=== PATIENT | female | born 1935 | race Caucasian/White ===

== ENCOUNTER 2017-12-01 14:00 | Observation (INO) | payer MEDICARE ==
[2017-12-01 14:33] LABS: BASO # 0.1 K/uL (0.0-0.2); BASO % 0.7 % (0.0-2.0); EOS # 0.3 K/uL (0.0-0.7); EOS % 3.7 % (0.0-4.0); HEMOGLOBIN 13.2 g/dL (11.0-16.0); LYMPH # 1.3 K/uL (1.0-4.3); LYMPH % 18.9 % (20.0-40.0); MEAN CELL VOLUME 87.8 fL (81.0-99.0); MEAN CORPUSCULAR HEMOGLOBIN 29.1 pg (27.0-31.0); MEAN CORPUSCULAR HGB CONC 33.1 g/dL (33.0-37.0); MEAN PLATELET VOLUME 9.6 fL (7.2-11.7); MONO # 0.7 K/uL (0.0-0.8); MONO % 9.8 % (0.0-10.0); NEUT # 4.6 K/uL (1.8-7.0); NEUT % 66.9 % (50.0-75.0); RBC 4.53 Mil/uL (3.80-5.20); WHITE BLOOD COUNT 6.9 K/uL (4.8-10.8)
[2017-12-01 14:40] LABS: SQUAMOUS EPITHIAL 4 /hpf (0-5); URINE BACTERIA RARE (<OCC); URINE BILIRUBIN NEGATIVE (NEGATIVE); URINE BLOOD NEGATIVE (NEGATIVE); URINE CLARITY Clear (Clear); URINE COLOR Yellow (YELLOW); URINE GLUCOSE (UA) NORMAL (Normal); URINE LEUKOCYTE ESTERASE NEG Leu/uL (Negative); URINE PROTEIN NEGATIVE (NEGATIVE); URINE UROBILINOGEN NORMAL mg/dL (0.2-1.0)
--- NOTE | 2017-12-01 14:54 | RAD ---
PROCEDURE: CHEST RADIOGRAPH, 1 VIEW HISTORY: SOB COMPARISON: Chest radiograph dated 11/30/2011 FINDINGS: LUNGS: Prominence of the pulmonary vasculature may be secondary to AP technique and/or pulmonary vascular congestion. No focal consolidation. PLEURA: No pneumothorax or pleural fluid seen. CARDIOVASCULAR: Cardiomediastinal silhouette unchanged. OSSEOUS STRUCTURES: Unchanged. VISUALIZED UPPER ABDOMEN: Normal. OTHER FINDINGS: None. IMPRESSION: Prominence of pulmonary vasculature may be secondary to AP technique and/or pulmonary vascular congestion. No focal consolidation or pleural effusion.
[2017-12-01 14:55] LABS: ALB/GLOB RATIO 1.2 (1.0-2.1); ALBUMIN 4.5 g/dL (3.5-5.0); ALT/SGPT 30 U/L (9-52); AST/SGOT 20 U/L (14-36); BLOOD UREA NITROGEN 11 mg/dL (7-17); CALCIUM 9.2 mg/dl (8.6-10.4); GFR AFRICAN-AMERICAN > 60; GFR NON-AFRICAN AMERICAN > 60
[2017-12-01] MEDS ORDERED: Aspirin 325 mg EC Tablets PO STA (14:55)
--- NOTE | 2017-12-01 14:55 | C.PDOC ---
History Of Present Illness 82 y/o female referred to ED by Dr. Amezcua for patient complaining of left leg numbness for 2 weeks with associated decreased sensation to left lateral leg. Patient is able to walk normally and reports occasional sharp pain to left medial 2 fingers and neck pain. Patient denies head injury, neck injury, fever, chills, chest pain, sob or any other complaints at this time. Time Seen by Provider: 12/01/17 14:08 Chief Complaint (Nursing): Lower Extremity Problem/Injury History Per: Patient History/Exam Limitations: no limitations Onset/Duration Of Symptoms: Days Current Symptoms Are (Timing): Still Present Past Medical History Reviewed: Historical Data, Nursing Documentation, Vital Signs Vital Signs: Last Vital Signs Temp 98.1 F 12/01/17 19:10 Pulse 85 12/01/17 19:54 Resp 20 12/01/17 19:54 BP 156/78 H 12/01/17 19:54 Pulse Ox 98 12/01/17 19:17 - Medical History PMH: No Chronic Diseases Surgical History: No Surg Hx Family History: States: No Known Family Hx - Social History Hx Alcohol Use: No Hx Substance Use: No - Immunization History Hx Tetanus Toxoid Vaccination: No Hx Influenza Vaccination: No Hx Pneumococcal Vaccination: No Review Of Systems Constitutional: Negative for: Fever, Chills Musculoskeletal: Positive for: Neck Pain, Hand Pain, Leg Pain Skin: Negative for: Rash Neurological: Positive for: Numbness. Negative for: Weakness Physical Exam - Physical Exam Appears: Non-toxic, No Acute Distress, Other (obese) Skin: Warm, Dry, No Rash Head: Atraumatic, Normacephalic Oral Mucosa: Moist Neck: Other (positive JVD. ) Cardiovascular: Murmur (Holosystolic) Respiratory: Rales (mild), No Rhonchi, No Wheezing Gastrointestinal/Abdominal: Soft, No Tenderness, No Guarding, No Rebound, Other (obese abdomen) Extremity: Pedal Edema (1/4 ), No Deformity, Other (decreased sensation to left lateral leg. no hair on both legs. lower extremities Warm to touch ) Extremity: Bilateral: Normal ROM Pulses: Left Dorsalis Pedis: Absent, Right Dorsalis Pedis: Absent Neurological/Psych: Oriented x3, Normal Speech, Normal Cognition, Normal Cranial Nerves, No Normal Sensation ED Course And Treatment - Laboratory Results Result Diagrams: 12/01/17 14:25 12/01/17 14:25 Lab Interpretation: Normal (inr 1.1, trop and bnp neg.) ECG: Interpreted By Me ECG Rhythm: Sinus Rhythm ECG Interpretation: Normal Rate From EC (BPM) O2 Sat by Pulse Oximetry: 100 (RA) Pulse Ox Interpretation: Normal - Radiology CXR: Interpreted by Me CXR Interpretation: Yes: No Acute Disease, Other (+ mild CHF, cardiomegaly) Progress Note: asa, lasix IV Reevaluation Time: 16:06 Reassessment Condition: Improved - Physician Consult Information Outcome Of Conversation: 1315, 1500, 1600 d/w Dr. Amezcua, will consult. 1600: d/ w Dr. Bell- Medicine Dog Control Officer- ok to admit. Medical Decision Making Medical Decision Making: though a vasculopath, pt with doppler detectable pulses b/l feet. LOW susp of arterial insufficiency emergency L neck, L hand, L lateral leg neurological symptoms suspicious for brain/c- spine issues, normal head CT today consider MRI C-spine as inpt. Disposition Doctor Will See Patient In The: Hospital Counseled Patient/Family Regarding: Studies Performed, Diagnosis - Disposition Disposition: HOSPITALIZED Disposition Time: 16:11 Condition: GOOD - Clinical Impression Clinical Impression: Paresthesia of left lower extremity, CHF (congestive heart failure) - Scribe Statement The provider has reviewed the documentation as recorded by the Markoibavni Navas All medical record entries made by the Scribe were at my direction and personally dictated by me. I have reviewed the chart and agree that the record accurately reflects my personal performance of the history, physical exam, medical decision making, and the department course for this patient. I have also personally directed, reviewed, and agree with the discharge instructions and disposition.
[2017-12-01 15:04] LABS: B-TYPE NATRIURETIC PEPTIDE 769 pg/mL (0-900)
[2017-12-01 15:11] LABS: INR 1.1; PROTHROMBIN TIME 12.7 SECONDS (9.7-12.2)
[2017-12-01] MEDS ORDERED: Aspirin 325 mg EC Tablets PO ONE (15:47)
--- NOTE | 2017-12-01 16:41 | CT ---
PROCEDURE: CT HEAD WITHOUT CONTRAST. HISTORY: L body parasthesias, shooting pain L hand ? SDH` COMPARISON: None available. TECHNIQUE: Axial computed tomography images were obtained through the head/brain without intravenous contrast. Radiation dose: Total exam DLP = 934.80 mGy-cm. This CT exam was performed using one or more of the following dose reduction techniques: Automated exposure control, adjustment of the mA and/or kV according to patient size, and/or use of iterative reconstruction technique. FINDINGS: HEMORRHAGE: No intracranial hemorrhage. BRAIN: Good corticomedullary differentiation is seen. Diffuse expansion of the ventriculosulcal and cisternal spaces is appreciated with white matter lucency compatible with diffuse cerebral atrophy and chronic microangiopathy. No suspicious extra-axial fluid collection is identified and the midline brain anatomy appears grossly nonfocal as imaged. There is no mass effect throughout. A chronic lacune is seen at the right basal ganglia versus dilated perivascular space. VENTRICLES: Unremarkable. No hydrocephalus. CALVARIUM: Unremarkable. PARANASAL SINUSES: Chronic sinusitis opacifies the left sphenoid sinus completely with a few punctate calcifications internally. MASTOID AIR CELLS: Unremarkable as visualized. No inflammatory changes. OTHER FINDINGS: None. IMPRESSION: No definite acute intracranial findings by standard CT criteria. Age related neuro degenerative changes are identified as discussed above as well as a chronic lacune right basal ganglia. Follow up CT or MRI are available as clinically warranted. Chronic left sphenoid sinus disease.
--- NOTE | 2017-12-01 18:25 | CP.PCM.HP ---
History of Present Illness - History of Present Illness History of Present Illness: pt is seen and examined, H&P is dictated for dr. pablo #[phone] Past Patient History - Past Social History Smoking Status: Never Smoked - PSYCHIATRIC Hx Substance Use: No Meds Home Medications: Home Medication List Medication Instructions Recorded Confirmed Type Aspirin [Aspirin Chewable] 81 mg PO DAILY chew 12/03/17 Rx Clopidogrel [Plavix] 75 mg PO DAILY #30 tab 12/03/17 Rx Cyanocobalamin (Vitamin B-12) 500 mcg PO DAILY #30 tablet 12/03/17 Rx [B-12] Levothyroxine [Synthroid] 25 mcg PO DAILY@0630 #30 tab 12/03/17 Rx Rosuvastatin Calcium [Crestor] 10 mg PO HS #30 tab 12/03/17 Rx Allergies/Adverse Reactions: Allergies Allergy/AdvReac Type Severity Reaction Status Date / Time Penicillins Allergy Verified 12/01/17 14:06 Results - Vital Signs Recent Vital Signs: Last Vital Signs Temp 97.9 F 12/01/17 14:09 Pulse 79 12/01/17 17:52 Resp 16 12/01/17 17:52 BP 148/77 12/01/17 17:52 Pulse Ox 99 12/01/17 17:52 - Labs Result Diagrams: 12/02/17 07:14 12/02/17 07:14 Labs: Laboratory Results - last 24 hr 12/01/17 12/01/17 12/01/17 14:04 14:25 14:25 WBC 6.9 RBC 4.53 Hgb 13.2 Hct 39.8 MCV 87.8 MCH 29.1 MCHC 33.1 RDW 14.0 Plt Count 156 MPV 9.6 Neut % (Auto) 66.9 Lymph % (Auto) 18.9 L [place] % (Auto) 9.8 Eos % (Auto) 3.7 Baso % (Auto) 0.7 Neut # (Auto) 4.6 Lymph # (Auto) 1.3 [place] # (Auto) 0.7 Eos # (Auto) 0.3 Baso # (Auto) 0.1 PT 12.7 H INR 1.1 APTT 25 D-Dimer, Quantitative Cancelled Sodium Potassium Chloride Carbon Dioxide Anion Gap BUN Creatinine Est GFR ( Amer) Est GFR (Non-Af Amer) POC Glucose (mg/dL) 177 H Random Glucose Calcium Total Bilirubin AST ALT Alkaline Phosphatase Troponin I NT-Pro-B Natriuret Pep Total Protein Albumin Globulin Albumin/Globulin Ratio Urine Color Urine Clarity Urine pH Ur Specific [place] Urine Protein Urine Glucose (UA) Urine Ketones Urine Blood Urine Nitrate Urine Bilirubin Urine Urobilinogen Ur Leukocyte Esterase Urine WBC (Auto) Urine RBC (Auto) Ur Squamous Epith Cells Urine Bacteria 12/01/17 12/01/17 12/01/17 14:25 14:25 15:29 WBC RBC Hgb Hct MCV MCH MCHC RDW Plt Count MPV Neut % (Auto) Lymph % (Auto) [place] % (Auto) Eos % (Auto) Baso % (Auto) Neut # (Auto) Lymph # (Auto) [place] # (Auto) Eos # (Auto) Baso # (Auto) PT INR APTT D-Dimer, Quantitative 500 H Sodium 142 Potassium 3.9 Chloride 99 Carbon Dioxide 29 Anion Gap 18 BUN 11 Creatinine 0.7 Est GFR ( Amer) > 60 Est GFR (Non-Af Amer) > 60 POC Glucose (mg/dL) Random Glucose 184 H Calcium 9.2 Total Bilirubin 0.6 AST 20 ALT 30 Alkaline Phosphatase 66 Troponin I < 0.0120 NT-Pro-B Natriuret Pep 769 Total Protein 8.3 Albumin 4.5 Globulin 3.8 Albumin/Globulin Ratio 1.2 Urine Color Yellow Urine Clarity Clear Urine pH 5.0 Ur Specific [place] 1.014 Urine Protein Negative Urine Glucose (UA) Normal Urine Ketones Negative Urine Blood Negative Urine Nitrate Negative Urine Bilirubin Negative Urine Urobilinogen Normal Ur Leukocyte Esterase Neg Urine WBC (Auto) < 1 Urine RBC (Auto) 1 Ur Squamous Epith Cells 4 Urine Bacteria Rare
--- NOTE | 2017-12-02 06:28 | NM ---
EXAM: NM Lung Perfusion and Ventilation Scan CLINICAL HISTORY: 82 years old, female; Signs and symptoms; Other: Left leg numbness for 2 weeks; Patient HX: Emergency department documentation sent for better clinical correlation. Chest x-ray done 12/01/17 sent for comparison. ; Additional info: R/O pulmonary embolisim TECHNIQUE: Nuclear Medicine ventilation and perfusion images of the lungs were obtained in multiple projections following inhalation of and injection of [id number] MAA. COMPARISON: Chest radiograph dated 12/01/2017 FINDINGS: Ventilation: Unremarkable. No ventilation defects. Perfusion: Unremarkable. No perfusion defects. IMPRESSION: No findings to suggest pulmonary embolism.
--- NOTE | 2017-12-02 07:10 | CP.PCM.CON ---
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 - DIABETIC OLD FAILURE WITH ASA Rx PLAVIX CONT ARB AND STATIN DM, BP AND WEIGHT CONTROL NEEDS PSG R/O SRBD ON OP Past Patient History - Past Social History Smoking Status: Never Smoked - PSYCHIATRIC Hx Substance Use: No Meds Allergies/Adverse Reactions: Allergies Allergy/AdvReac Type Severity Reaction Status Date / Time Penicillins Allergy Verified 12/01/17 14:06 - Medications Medications: Current Medications Aspirin (Aspirin Chewable) 81 mg PO DAILY [facility] Clopidogrel Bisulfate (Plavix) 75 mg PO DAILY [facility] Glimepiride (Amaryl) 4 mg PO DAILY [facility] Heparin Sodium (Porcine) (Heparin) 5,000 units SC Q8 [facility] Last Admin: 12/02/17 06:26 Dose: 5,000 units Losartan Potassium (Cozaar) 50 mg PO DAILY [facility] Rosuvastatin Calcium (Crestor) 10 mg PO HS [facility] Last Admin: 12/01/17 22:01 Dose: 10 mg Results - Vital Signs Recent Vital Signs: Last Vital Signs Temp 97.1 F L 12/01/17 23:10 Pulse 82 12/02/17 06:23 Resp 20 12/01/17 23:10 BP 147/81 12/02/17 06:23 Pulse Ox 100 12/02/17 00:36 - Labs Result Diagrams: 12/01/17 14:25 12/01/17 14:25 Labs: Laboratory Results - last 24 hr 12/01/17 12/01/17 12/01/17 14:04 14:25 14:25 WBC 6.9 RBC 4.53 Hgb 13.2 Hct 39.8 MCV 87.8 MCH 29.1 MCHC 33.1 RDW 14.0 Plt Count 156 MPV 9.6 Neut % (Auto) 66.9 Lymph % (Auto) 18.9 L [place] % (Auto) 9.8 Eos % (Auto) 3.7 Baso % (Auto) 0.7 Neut # (Auto) 4.6 Lymph # (Auto) 1.3 [place] # (Auto) 0.7 Eos # (Auto) 0.3 Baso # (Auto) 0.1 PT 12.7 H INR 1.1 APTT 25 D-Dimer, Quantitative Cancelled Sodium Potassium Chloride Carbon Dioxide Anion Gap BUN Creatinine Est GFR ( Amer) Est GFR (Non-Af Amer) POC Glucose (mg/dL) 177 H Random Glucose Calcium Total Bilirubin AST ALT Alkaline Phosphatase Troponin I NT-Pro-B Natriuret Pep Total Protein Albumin Globulin Albumin/Globulin Ratio Urine Color Urine Clarity Urine pH Ur Specific [place] Urine Protein Urine Glucose (UA) Urine Ketones Urine Blood Urine Nitrate Urine Bilirubin Urine Urobilinogen Ur Leukocyte Esterase Urine WBC (Auto) Urine RBC (Auto) Ur Squamous Epith Cells Urine Bacteria 12/01/17 12/01/17 12/01/17 14:25 14:25 15:29 WBC RBC Hgb Hct MCV MCH MCHC RDW Plt Count MPV Neut % (Auto) Lymph % (Auto) [place] % (Auto) Eos % (Auto) Baso % (Auto) Neut # (Auto) Lymph # (Auto) [place] # (Auto) Eos # (Auto) Baso # (Auto) PT INR APTT D-Dimer, Quantitative 500 H Sodium 142 Potassium 3.9 Chloride 99 Carbon Dioxide 29 Anion Gap 18 BUN 11 Creatinine 0.7 Est GFR ( Amer) > 60 Est GFR (Non-Af Amer) > 60 POC Glucose (mg/dL) Random Glucose 184 H Calcium 9.2 Total Bilirubin 0.6 AST 20 ALT 30 Alkaline Phosphatase 66 Troponin I < 0.0120 NT-Pro-B Natriuret Pep 769 Total Protein 8.3 Albumin 4.5 Globulin 3.8 Albumin/Globulin Ratio 1.2 Urine Color Yellow Urine Clarity Clear Urine pH 5.0 Ur Specific [place] 1.014 Urine Protein Negative Urine Glucose (UA) Normal Urine Ketones Negative Urine Blood Negative Urine Nitrate Negative Urine Bilirubin Negative Urine Urobilinogen Normal Ur Leukocyte Esterase Neg Urine WBC (Auto) < 1 Urine RBC (Auto) 1 Ur Squamous Epith Cells 4 Urine Bacteria Rare 12/01/17 12/02/17 19:48 03:28 WBC RBC Hgb Hct MCV MCH MCHC RDW Plt Count MPV Neut % (Auto) Lymph % (Auto) [place] % (Auto) Eos % (Auto) Baso % (Auto) Neut # (Auto) Lymph # (Auto) [place] # (Auto) Eos # (Auto) Baso # (Auto) PT INR APTT 30 D D-Dimer, Quantitative Sodium Potassium Chloride Carbon Dioxide Anion Gap BUN Creatinine Est GFR ( Amer) Est GFR (Non-Af Amer) POC Glucose (mg/dL) Random Glucose Calcium Total Bilirubin AST ALT Alkaline Phosphatase Troponin I < 0.0120 NT-Pro-B Natriuret Pep Total Protein Albumin Globulin Albumin/Globulin Ratio Urine Color Urine Clarity Urine pH Ur Specific [place] Urine Protein Urine Glucose (UA) Urine Ketones Urine Blood Urine Nitrate Urine Bilirubin Urine Urobilinogen Ur Leukocyte Esterase Urine WBC (Auto) Urine RBC (Auto) Ur Squamous Epith Cells Urine Bacteria
[2017-12-02 07:46] LABS: BASO % 0.6 % (0.0-2.0); EOS # 0.3 K/uL (0.0-0.7); EOS % 5.2 % (0.0-4.0); HEMOGLOBIN 12.3 g/dL (11.0-16.0); LYMPH # 1.3 K/uL (1.0-4.3); LYMPH % 21.5 % (20.0-40.0); MEAN CELL VOLUME 87.8 fL (81.0-99.0); MEAN CORPUSCULAR HEMOGLOBIN 29.6 pg (27.0-31.0); MEAN CORPUSCULAR HGB CONC 33.7 g/dL (33.0-37.0); MEAN PLATELET VOLUME 9.6 fL (7.2-11.7); MONO # 0.7 K/uL (0.0-0.8); MONO % 12.3 % (0.0-10.0); NEUT # 3.7 K/uL (1.8-7.0); NEUT % 60.4 % (50.0-75.0); NRBC % 0.1 % (0.0-2.0); RBC 4.15 Mil/uL (3.80-5.20); RED CELL DISTRIBUTION WIDTH 14.2 % (11.5-14.5)
[2017-12-02 07:47] LABS: ALB/GLOB RATIO 1.1 (1.0-2.1); ALT/SGPT 26 U/L (9-52); AST/SGOT 22 U/L (14-36); BLOOD UREA NITROGEN 13 mg/dL (7-17); CALCIUM 9.1 mg/dl (8.6-10.4); GFR AFRICAN-AMERICAN > 60; GFR NON-AFRICAN AMERICAN > 60; HDL CHOLESTEROL 35 mg/dL (30-70)
[2017-12-02 07:57] LABS: LDL CHOLESTEROL 135 mg/dL (0-129)
[2017-12-02 08:05] LABS: FREE T4 0.76 ng/dL (0.78-2.19)
--- NOTE | 2017-12-02 08:31 | HP ---
LOCATION: The patient is located in room 651, bed B. The patient is seen and examined by Dr. Luli Howard. CHIEF COMPLAINT: Left leg pain and numbness. HISTORY: Mrs. Quigley is 82 years old obese elderly female with a past medical history significant for longstanding hypertension, diabetes, hyperlipidemia, coronary artery disease, status post multiple stents who was followed by Dr. Leonid Amezcua. As per the patient, she went to Dr. Amezcua, systems development manager's office this afternoon, and the patient was complaining of left leg numbness and pain and feeling cold on the leg for 2 weeks and questionable swelling of the legs. The patient denies any head injury, denies any neck injury. Denies any fevers, chills. Denies any cough, shortness of breath, denies any chest pain. The patient is also complaining of vague chest discomfort and also sometimes in the left arm and finger pain. Denies any recent weight loss and weight gain. Denies any bleeding per rectum. PAST MEDICAL HISTORY: Significant for longstanding hypertension, fatigue, hyperlipidemia, coronary artery disease, status post coronary stents, on 08/04/2010. ALLERGIES: ALLERGIC TO PENICILLIN. SOCIAL HISTORY: The patient denies any smoking, alcohol, or drugs. PERSONAL HISTORY: She is a . She has 6 children. Both parents are . FAMILY HISTORY: Not significant. CURRENT MEDICATIONS: Include as follows: Losartan 50 mg p.o. daily, aspirin 81 mg daily, Crestor 10 mg daily, and glimepiride 4 mg p.o. daily. REVIEW OF SYSTEMS: Significant for varicose veins in both lower extremities and also pain in the left lower extremity and numbness for about 2 weeks and feeling cold in the left leg, questionable pain in the left arm and fingers and also vague chest discomfort. All other review of systems are reviewed and are negative. PHYSICAL EXAMINATION: VITAL SIGNS: Blood pressure 148/77, pulse 79, respirations 16, temperature 98.1, saturation 99%, height 5 feet 8 inches, and weight is 240 pounds, BMI 36. GENERAL: Mrs. Quigley is 82 years old, elderly obese female well built, well nourished, not in distress. HEENT: Pupils are normal and reactive to light and accommodation. Conjunctivae are pink. Sclerae are anicteric. Tongue is moist. Trachea is midline. LUNGS: Symmetric on both sides. Bilateral breath sounds present. Clear on auscultation. CARDIOVASCULAR: [place] at the fifth intercostal space, midclavicular line. S1 and S2 audible. No murmur or gallop. ABDOMEN: Normal in appearance. Soft, tympanic. No guarding. No rigidity. No hepatosplenomegaly. CENTRAL NERVOUS SYSTEM: The patient is alert, awake, and oriented times 2 to 3. Sensory and motor system is grossly within normal limits. Cranial nerves II through XII grossly intact. EXTREMITIES: No cyanosis, no clubbing, no edema. Dorsalis pedis pulses are palpable. The patient has varicose veins in both lower extremities. No calf tenderness. LABORATORY DATA: Include as follows, as of 11/21/2017, WBC 6.9, hemoglobin 13.2, hematocrit 39.8, platelets 156, PT 12.7, PTT 25, D-dimer 500. Sodium 142, potassium 3.9, chloride 99, CO2 of 29, BUN 11, creatinine 0.7, glucose 184, calcium 9.2. Total bili 0.6, AST 20, ALT 30, alkaline phosphatase 66, troponin 0.012. Pro-BNP 769, total protein 8.3, albumin is 4.5. Urine is yellow clear, pH 5, specific gravity 1.014, and protein negative, glucose negative, ketones negative, blood negative, nitrites negative, bilirubin negative, urobilinogen normal, leukocyte esterase negative, wbc less than 1, rbc 1, bacteria rare. Chest x-ray on 12/01/2017, impression, prominence on the pulmonary vasculature maybe secondary to technique and/or pulmonary vascular congestion. No focal consolidation or pleural effusion. CT of the head as of 12/01/2017, no definite acute intracranial findings by standard CT criteria , age related neurodegenerative changes are identified as well as chronic lacunar and right basal ganglia. Followup CT or MRI are available as clinically warranted, chronic left sphenoid sinus disease. EKG official report is pending, heart rate is 87, TX interval is 170, QRS 96, QT is 386 msec. Normal sinus rhythm. Poor R-wave progression from V1 to V3. IMPRESSION: In summary, Mrs. Quigley is 82 years old elderly obese female with hypertension, diabetes, hyperlipidemia, coronary artery disease, varicose veins, was admitted with left leg pain and numbness for 2 weeks, occasional pain in left arm and vague chest discomfort with elevated D-dimer. 1. Rule out deep venous thrombosis and rule out pulmonary embolism in way of left leg pain and elevated D-dimer. 2. Hypertension. Continue current medications, Losartan 50 mg p.o. daily and low sodium diet. 3. Type 2 diabetes. Continue Amaryl 4 mg p.o. daily and Accu-Chek b.i.d. PLAN: Continue aspirin. Continue DVT prophylaxis with subcu heparin 5000 units q.8 hours. We will also obtain neurology consult and cardiology evaluation. Check troponin level q.8 hours x3 to rule out ACS. First troponins are within normal limits. We will also check ultrasound of the lower extremities, Doppler of the lower extremities, arterial and venous and also carotid Doppler and V/Q scan to rule out PE. The patient was seen and examined. Dictated for Dr. Luli Howard. Jensen Howard MD [id number]
--- NOTE | 2017-12-02 10:13 | CP.PCM.PN ---
Subjective - Date & Time of Evaluation Date of Evaluation: 12/02/17 Time of Evaluation: 10:15 - Subjective Subjective: Progress note dictated #[id number] Objective - Vital Signs/Intake and Output Vital Signs (last 24 hours): Temp Pulse Resp BP Pulse Ox 97.6 F 80 18 161/89 H 98 12/02/17 08:19 12/02/17 08:19 12/02/17 08:19 12/02/17 08:19 12/02/17 08:19 Intake and Output: 12/02/17 12/02/17 06:59 18:59 Intake Total 120 Balance 120 - Medications Medications: Current Medications Aspirin (Aspirin Chewable) 81 mg PO DAILY [facility] Clopidogrel Bisulfate (Plavix) 75 mg PO DAILY [facility] Glimepiride (Amaryl) 4 mg PO DAILY [facility] Heparin Sodium (Porcine) (Heparin) 5,000 units SC Q8 [facility] Last Admin: 12/02/17 06:26 Dose: 5,000 units Losartan Potassium (Cozaar) 50 mg PO DAILY [facility] Rosuvastatin Calcium (Crestor) 10 mg PO HS [facility] Last Admin: 12/01/17 22:01 Dose: 10 mg - Labs Labs: 12/02/17 07:14 12/02/17 07:14 PT 12.7 SECONDS (9.7-12.2) H 12/01/17 14:25 INR 1.1 12/01/17 14:25 APTT 30 SECONDS (21-34) D 12/01/17 19:48
--- NOTE | 2017-12-02 15:42 | CARD ---
APPROVED REPORT EXAM: Two-dimensional and M-mode echocardiogram with Doppler and color Doppler. Other Information Quality : GoodRhythm : INDICATION Congestive Heart Failure CARDIO EMOLIGENESIS, HOLOSYSTOLIC (M) 2D DIMENSIONS IVSd1.4 (0.7-1.1cm)LVDd5.2 (3.9-5.9cm) LVOT Diameter2.6 (1.8-2.4cm)PWd1.4 (0.7-1.1cm) LVDs3.6 (2.5-4.0cm)FS (%) 30.7 % LVEF (%)50.0 (>50%) M-Mode DIMENSIONS Left Atrium (MM)3.51 (2.5-4.0cm)Aortic Root3.81 (2.2-3.7cm) Aortic Cusp Exc.1.02 (1.5-2.0cm) Aortic Valve AoV Peak Owqpaekg349.7cm/sAoV VTI37.3cmAO Peak GR.17mmHg LVOT Peak Vxdwtamn037.0cm/sLVOT VTI24.41cmAO Mean GR.10mmHg JAYSON (VMAX)2.20pf8PZR (VTI)3.91zf8SN P 1/2 [id number] Mitral Valve MV E Gjhpikzl71.4cm/sMV A Xbzwzclr957.4cm/sE/A ratio0.7 TDI E/Lateral E'0.0E/Medial E'0.0 Tricuspid Valve TR Peak Gmxfioeq853ss/sTR Peak Gr.46fxJjHMQV77spFe LEFT VENTRICLE The Left Ventricle is borderline dilated. There is mild concentric left ventricular hypertrophy. Left ventricle systolic function is borderline. There is normal LV segmental wall motion. Transmitral Doppler flow pattern is Grade I-abnormal relaxation pattern. RIGHT VENTRICLE The right ventricle is normal size. There is normal right ventricular wall thickness. The right ventricular systolic function is normal. ATRIA The left atrium size is normal. The right atrium size is normal. AORTIC VALVE The aortic valve is moderately sclerotic. There is moderate aortic regurgitation. There is mild valvular aortic stenosis. MITRAL VALVE The mitral valve is moderately thickened. There is no mitral valve stenosis. There is no mitral valve regurgitation noted. TRICUSPID VALVE The tricuspid valve is normal in structure. There is no tricuspid valve regurgitation noted. GREAT VESSELS The aortic root is mildly enlarged. The IVC is normal in size and collapses >50% with inspiration. PERICARDIAL EFFUSION There is no pericardial effusion. <Conclusion> The Left Ventricle is borderline dilated. There is mild concentric left ventricular hypertrophy. Left ventricle systolic function is borderline. There is normal LV segmental wall motion. Transmitral Doppler flow pattern is Grade I-abnormal relaxation pattern. The aortic valve is moderately sclerotic. There is moderate aortic regurgitation. There is mild valvular aortic stenosis. The aortic root is mildly enlarged.
[2017-12-02 15:55] VITALS: RESP 20
--- NOTE | 2017-12-02 16:23 | CARD ---
APPROVED REPORT EKG Measurement Heart [id number] <Conclusion> Normal sinus rhythm with sinus arrhythmia Voltage criteria for left ventricular hypertrophy Cannot rule out Septal infarct, age undetermined T wave abnormality, consider lateral ischemia Abnormal ECG
--- NOTE | 2017-12-02 16:35 | PN ---
DATE: 12/02/2017 SUBJECTIVE: The patient was seen and examined at bedside. The patient denies any new complaints. Denies any headache or dizziness. Denies any chest pain, shortness of breath, or wheezing. Denies any new neurologic symptoms. All other systems reviewed and were found to be negative. PHYSICAL EXAMINATION GENERAL: Elderly female, lying in bed, in no acute distress. VITAL SIGNS: Blood pressure 147/81, pulse 82, respirations 18, and temperature 97.1 degrees Fahrenheit, O2 saturations 97% on room air. HEENT: Pupils are equal, round, and reacting to light and accommodation. Extraocular muscles intact. No icterus. No pallor. No oral thrush. No pharyngeal congestion. NECK: Supple. No JVD. LUNGS: Bilateral vesicular breath sounds. No wheezing, no rhonchi. CVS: S1 and S2 present, regular. ABDOMEN: Soft, nontender. Bowel sounds present. No guarding, no rigidity, no rebound tenderness noted. [employer]: Alert, awake, and oriented x3. No gross motor deficits noted. EXTREMITIES: No edema. Palpable peripheral pulses. MEDICATIONS: Include aspirin 81 mg daily, Plavix 75 mg daily, Amaryl 4 mg daily, losartan 50 mg daily, Crestor 10 mg p.o. at bedtime. LABORATORY DATA: Labs done from this morning, WBC 6.0, hemoglobin 12.3, hematocrit 36.4, platelets 141, ESR 30, sodium 142, potassium 3.8, chloride 100, bicarb 29, BUN 16, creatinine 0.8, glucose 140, hemoglobin A1c 8.1, calcium 9.1. Other LFTs within normal limits. C-reactive protein 4.85, proBNP 769, LDL is 135, cholesterol 197, triglycerides 88, HDL 35, vitamin B12 207, TSH 6.45. UA negative. No cultures done. Chest x-ray: Consistent with prominence of pulmonary vasculature, questionable pulmonary vascular congestion. No focal consolidation or pleural effusion. Head CT: No definite acute intracranial findings, age-related neurodegenerative changes, chronic lacunar right basal ganglia. V/Q scan: Negative for any PE. Echocardiogram results pending. Doppler's pending. ASSESSMENT AND PLAN: Elderly female with history of hypertension, hyperlipemia, diabetes mellitus, coronary artery disease, status post stent placement, admitted for left leg pain and numbness probably secondary to diabetic neuropathy. Left arm pain, weakness, and neck pain; rule out cerebrovascular accident versus transient ischemic attack. Elevated D-dimer, rule out any thromboembolic event. Low B12 levels and elevated TSH level. Diabetes is uncontrolled, continue with current medications. We will add Januvia 25 mg p.o. daily, do Accu-Cheks q.a.c. and at bedtime. Give vitamin B12 injections and start Synthroid 25 mcg daily. All the workup is in progress. Neurology consult appreciated. We will follow up with Cardiology. Luli Howard MD
--- NOTE | 2017-12-02 17:00 | CON ---
DATE: ATTENDING PHYSICIAN: Luli Howard MD LOCATION: The patient is in room 651, bed B. REASON FOR CONSULTATION: Left leg numbness. CHIEF COMPLAINT: The patient was advised to come to the [facility] with a history of 2 weeks left leg numbness. From neurological point of view, I was called in to evaluate her for further management. HISTORY OF PRESENT ILLNESS: Ms. Suzan Quigley is an 82-year-old strong, well built, right-handed female presenting with somewhere due to nearly 2 months history of on and off numbness of her left foot for the last one week. This got intensified. Feels like heavy and as well as she is dragging her leg. The symptoms are not resolving. She has been using the cane for the last more than a year for her back problem and arthritis. She is also complaining of numbness of her left medial aspect of arm, forearm, and fourth and fifth digits. She denies any complaints of her facial numbness. No history of headache. No history of visual or bulbar dysfunction. Never had similar episodes in the past. No history of fall or involuntary movements have been observed or subjectively complaining at present. PAST MEDICAL HISTORY: Significant for hypertension, dyslipidemia, status post coronary artery disease and stent placement x7 as outpatient. PERSONAL HISTORY: Denies smoking or alcohol use. ALLERGIES: ALLERGIC TO PENICILLIN. REVIEW OF SYSTEMS: The 12-point systems being reviewed from neuro, left leg numbness. PHYSICAL EXAMINATION: VITAL SIGNS: Blood pressure 147/81, mean artery pressure of 103, respiratory rate 18, temperature afebrile. NECK: Supple. No carotid bruits. HEART: Heart sounds regular. CHEST: Fair air entry. EXTREMITIES: No edema in legs. NEUROLOGIC EXAMINATION: Mental status examination: She is awake, alert, and oriented to person, place, and time. Speech is clear. Naming, repetition, fluency, comprehension all within normal. CRANIAL NERVE EXAMINATION: Visual field intact. Pupils reactive to light. Extraocular movement normal. No nystagmus. No facial sensory deficit. Significant facial asymmetry, manifesting as flattening of the left nasolabial fold. Hearing is normal. Tongue is midline. Good gag. MOTOR EXAMINATION: Outstretched hand with eyes closed, no drift noted. No sensory tremor. Muscle strength is equal in all four extremities, except some subjective weakness of her left leg. DEEP TENDON REFLEXES: Biceps, brachialis, triceps, and knee all are 2+ on her left side, right side was trace. Both ankles are absent. Plantars are upgoing on her left side, right side was downgoing. SENSORY EXAMINATION: Shows hyperesthesia on her left side to compare with the right side. Significant bilateral distal symmetric sensory motor neuropathy. Posterior column is intact. COORDINATION: Finger-nose test is dysmetric on both sides. GAIT: Deferred at this time. WORKUP: CT of the head reviewed by me showed hyperlucent area over right internal capsule verses external capsule, could be extending to the right thalamic region. This could be the cause for her symptoms she brought in. These were all consistent with ischemic process secondary to her hypertension, diabetes mellitus, obesity, probable hidden sleep apnea. 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 Her further workup shows WBC 6.9, hemoglobin 13.2, hematocrit 39.8, platelet 156. PT 12.7, INR 1.1, PTT 30, D-dimer 500. Sodium 142, potassium 3.9, chloride 99, bicarbonate 29, BUN 11, creatinine 0.7, GFR more than 60, random glucose 177. Urinalysis shows rare bacteria. RECOMMENDATIONS: 1. MRI of the brain to rule out subacute process of stroke versus mass. 2. Carotid Doppler, echocardiogram to be done to rule out her thrombogenesis versus cephalogenesis. 3. The patient placed with aspirin. 4. The patient should be placed on Plavix as well with angiotensin receptor blockers and statin. 5. Strict diabetic and weight control have been discussed with the patient. 6. Physical therapy and DVT prophylaxis. 7. Following workup, the patient should have polysomnogram which can be done as outpatient because of her comorbid risk factors for her seizures, strokes. 8. The patient's condition has been well discussed with her. The patient will be followed closely with you. Nba Kilgore MD
[2017-12-02] MEDS: (Novolin R) Insulin Human Regular 100 units/ml vial SC SCH ×2 (17:30→22:18)
--- NOTE | 2017-12-02 22:43 | CP.PCM.CON ---
History of Present Illness - History of Present Illness History of Present Illness: Patient seen and evaluated Admitted for CVA W/U in progress History Of Present Illness 82 y/o female referred to ED by Dr. Amezcua for patient complaining of left leg numbness for 2 weeks with associated decreased sensation to left lateral leg. Patient is able to walk normally and reports occasional sharp pain to left medial 2 fingers and neck pain. Patient denies head injury, neck injury, fever, chills, chest pain, sob or any other complaints at this time. Chief Complaint (Nursing): Lower Extremity Problem/Injury History Per: Patient History/Exam Limitations: no limitations Onset/Duration Of Symptoms: Days Current Symptoms Are (Timing): Still Present - Social History Hx Alcohol Use: No Hx Substance Use: No - Immunization History Hx Tetanus Toxoid Vaccination: No Hx Influenza Vaccination: No Hx Pneumococcal Vaccination: No Review Of Systems Constitutional: Negative for: Fever, Chills Musculoskeletal: Positive for: Neck Pain, Hand Pain, Leg Pain Skin: Negative for: Rash Neurological: Positive for: Numbness. Negative for: Weakness Physical Exam - Physical Exam Appears: Non-toxic, No Acute Distress, Other (obese) Skin: Warm, Dry, No Rash Head: Atraumatic, Normacephalic Oral Mucosa: Moist Neck: Other (positive JVD. ) Cardiovascular: Murmur (Holosystolic) Respiratory: Rales (mild), No Rhonchi, No Wheezing Gastrointestinal/Abdominal: Soft, No Tenderness, No Guarding, No Rebound, Other (obese abdomen) Extremity: Pedal Edema (1/4 ), No Deformity, Other (decreased sensation to left lateral leg. no hair on both legs. lower extremities Warm to touch ) Extremity: Bilateral: Normal ROM Pulses: Left Dorsalis Pedis: Absent, Right Dorsalis Pedis: Absent Neurological/Psych: Oriented x3, Normal Speech, Normal Cognition, Normal Cranial Nerves, No Normal Sensation Past Patient History - Past Social History Smoking Status: Never Smoked - PSYCHIATRIC Hx Substance Use: No Meds Home Medications: Home Medication List Medication Instructions Recorded Confirmed Type Aspirin [Aspirin Chewable] 81 mg PO DAILY chew 12/03/17 Rx Clopidogrel [Plavix] 75 mg PO DAILY #30 tab 12/03/17 Rx Cyanocobalamin (Vitamin B-12) 500 mcg PO DAILY #30 tablet 12/03/17 Rx [B-12] Levothyroxine [Synthroid] 25 mcg PO DAILY@0630 #30 tab 12/03/17 Rx Rosuvastatin Calcium [Crestor] 10 mg PO HS #30 tab 12/03/17 Rx Allergies/Adverse Reactions: Allergies Allergy/AdvReac Type Severity Reaction Status Date / Time Penicillins Allergy Verified 12/01/17 14:06 - Medications Medications: Current Medications Aspirin (Aspirin Chewable) 81 mg PO DAILY [facility] Last Admin: 12/02/17 10:53 Dose: 81 mg Clopidogrel Bisulfate (Plavix) 75 mg PO DAILY [facility] Last Admin: 12/02/17 10:53 Dose: 75 mg Cyanocobalamin (Vitamin B12 1000 Mcg/Ml Inj) 1,000 mcg IM DAILY [facility] Last Admin: 12/02/17 11:56 Dose: 1,000 mcg Glimepiride (Amaryl) 4 mg PO DAILY [facility] Last Admin: 12/02/17 10:53 Dose: 4 mg Heparin Sodium (Porcine) (Heparin) 5,000 units SC Q8 [facility] Last Admin: 12/02/17 22:18 Dose: 5,000 units Insulin Human Regular (Novolin R) 1 unit SC ACHS [facility] PRN Reason: Protocol Last Admin: 12/02/17 22:18 Dose: Not Given Levothyroxine Sodium (Synthroid) 25 mcg PO DAILY@0630 [facility] Losartan Potassium (Cozaar) 50 mg PO DAILY [facility] Last Admin: 12/02/17 10:53 Dose: 50 mg Rosuvastatin Calcium (Crestor) 10 mg PO HS [facility] Last Admin: 12/02/17 22:17 Dose: 10 mg Sitagliptin Phosphate (Januvia) 25 mg PO DAILY [facility] Last Admin: 12/02/17 11:55 Dose: 25 mg Results - Vital Signs Recent Vital Signs: Last Vital Signs Temp 98.2 F 12/02/17 15:00 Pulse 80 12/02/17 15:00 Resp 20 12/02/17 15:00 BP 157/76 H 12/02/17 15:00 Pulse Ox 99 12/02/17 15:00 - Labs Result Diagrams: 12/02/17 07:14 12/02/17 07:14 Labs: Laboratory Results - last 24 hr 12/02/17 12/02/17 12/02/17 03:28 06:17 07:14 WBC RBC Hgb Hct MCV MCH MCHC RDW Plt Count MPV Neut % (Auto) Lymph % (Auto) Finney % (Auto) Eos % (Auto) Baso % (Auto) Neut # (Auto) Lymph # (Auto) Finney # (Auto) Eos # (Auto) Baso # (Auto) ESR Sodium Potassium Chloride Carbon Dioxide Anion Gap BUN Creatinine Est GFR ( Amer) Est GFR (Non-Af Amer) POC Glucose (mg/dL) 142 H Random Glucose Hemoglobin A1c Calcium Total Bilirubin AST ALT Alkaline Phosphatase Troponin I < 0.0120 C-React Prot High Sens 5.05 H Total Protein Albumin Globulin Albumin/Globulin Ratio Triglycerides Cholesterol LDL Cholesterol Direct HDL Cholesterol Vitamin B12 Free T4 TSH 3rd Generation 12/02/17 12/02/17 12/02/17 07:14 07:14 07:14 WBC 6.0 RBC 4.15 Hgb 12.3 Hct 36.5 MCV 87.8 MCH 29.6 MCHC 33.7 RDW 14.2 Plt Count 141 MPV 9.6 Neut % (Auto) 60.4 Lymph % (Auto) 21.5 Finney % (Auto) 12.3 H Eos % (Auto) 5.2 H Baso % (Auto) 0.6 Neut # (Auto) 3.7 Lymph # (Auto) 1.3 Finney # (Auto) 0.7 Eos # (Auto) 0.3 Baso # (Auto) 0.0 ESR 30 H Sodium 142 Potassium 3.8 Chloride 100 Carbon Dioxide 29 Anion Gap 16 BUN 13 Creatinine 0.8 Est GFR ( Amer) > 60 Est GFR (Non-Af Amer) > 60 POC Glucose (mg/dL) Random Glucose 140 H Hemoglobin A1c 8.1 H Calcium 9.1 Total Bilirubin 0.6 AST 22 ALT 26 Alkaline Phosphatase 63 Troponin I < 0.0120 C-React Prot High Sens Total Protein 7.5 Albumin 4.0 Globulin 3.6 Albumin/Globulin Ratio 1.1 Triglycerides 88 Cholesterol 197 LDL Cholesterol Direct 135 H HDL Cholesterol 35 Vitamin B12 207 L Free T4 TSH 3rd Generation 12/02/17 12/02/17 12/02/17 07:14 11:12 16:58 WBC RBC Hgb Hct MCV MCH MCHC RDW Plt Count MPV Neut % (Auto) Lymph % (Auto) Finney % (Auto) Eos % (Auto) Baso % (Auto) Neut # (Auto) Lymph # (Auto) Finney # (Auto) Eos # (Auto) Baso # (Auto) ESR Sodium Potassium Chloride Carbon Dioxide Anion Gap BUN Creatinine Est GFR ( Amer) Est GFR (Non-Af Amer) POC Glucose (mg/dL) 249 H Random Glucose Hemoglobin A1c Calcium Total Bilirubin AST ALT Alkaline Phosphatase Troponin I < 0.0120 C-React Prot High Sens 4.85 H Total Protein Albumin Globulin Albumin/Globulin Ratio Triglycerides Cholesterol LDL Cholesterol Direct HDL Cholesterol Vitamin B12 Free T4 0.76 L TSH 3rd Generation 6.45 H 12/02/17 12/02/17 17:12 21:13 WBC RBC Hgb Hct MCV MCH MCHC RDW Plt Count MPV Neut % (Auto) Lymph % (Auto) Finney % (Auto) Eos % (Auto) Baso % (Auto) Neut # (Auto) Lymph # (Auto) Finney # (Auto) Eos # (Auto) Baso # (Auto) ESR Sodium Potassium Chloride Carbon Dioxide Anion Gap BUN Creatinine Est GFR ( Amer) Est GFR (Non-Af Amer) POC Glucose (mg/dL) 96 153 H Random Glucose Hemoglobin A1c Calcium Total Bilirubin AST ALT Alkaline Phosphatase Troponin I C-React Prot High Sens Total Protein Albumin Globulin Albumin/Globulin Ratio Triglycerides Cholesterol LDL Cholesterol Direct HDL Cholesterol Vitamin B12 Free T4 TSH 3rd Generation Assessment & Plan - Assessment and Plan (Free Text) Assessment: CHF (congestive heart failure) -Candidate for LinQ Monitor to assess rhythm long-term, concern for paroxysmal Afib Continue ASA 81mg PO qD, Plavix 75mg PO qD, Cozaar 50mg PO qD, Crestor 10mg PO HS Ddimer (+)500 LDL 135H TSH elevateda at 6.45 Echo 12/02- LVH, mild sclerotic aortic valve, grade 1 abnormal relaxation, aortic regurg, see full report. Carotid studies - negative, see full report LE duplex - negative, see full report LE US - decreased perfusion to LLE non diagnostic RLE 2/2 calcifications, see full report
[2017-12-03] MEDS ORDERED: Levothyroxine 25 MCG TAB PO SCH (06:30)
[2017-12-03 07:29] VITALS: BP 135/80; TEMP 98; O2SAT 97
[2017-12-03] MEDS: (Novolin R) Insulin Human Regular 100 units/ml vial SC SCH ×2 (08:03→12:26)
--- NOTE | 2017-12-03 10:00 | CP.PCM.PN ---
Subjective - Date & Time of Evaluation Date of Evaluation: 12/03/17 Time of Evaluation: 10:00 - Subjective Subjective: Progress note dictated #[id number] Objective - Vital Signs/Intake and Output Vital Signs (last 24 hours): Temp Pulse Resp BP Pulse Ox 98.0 F 87 20 135/80 97 12/03/17 07:10 12/03/17 07:10 12/03/17 07:10 12/03/17 07:10 12/03/17 07:10 Intake and Output: 12/03/17 12/03/17 06:59 18:59 Intake Total 590 Balance 590 - Medications Medications: Current Medications Aspirin (Aspirin Chewable) 81 mg PO DAILY [facility] Last Admin: 12/02/17 10:53 Dose: 81 mg Clopidogrel Bisulfate (Plavix) 75 mg PO DAILY [facility] Last Admin: 12/02/17 10:53 Dose: 75 mg Cyanocobalamin (Vitamin B12 1000 Mcg/Ml Inj) 1,000 mcg IM DAILY [facility] Last Admin: 12/02/17 11:56 Dose: 1,000 mcg Glimepiride (Amaryl) 4 mg PO DAILY [facility] Last Admin: 12/02/17 10:53 Dose: 4 mg Heparin Sodium (Porcine) (Heparin) 5,000 units SC Q8 [facility] Last Admin: 12/03/17 06:09 Dose: 5,000 units Insulin Human Regular (Novolin R) 1 unit SC ACHS [facility] PRN Reason: Protocol Last Admin: 12/03/17 08:03 Dose: Not Given Levothyroxine Sodium (Synthroid) 25 mcg PO DAILY@0630 [facility] Last Admin: 12/03/17 06:04 Dose: 25 mcg Losartan Potassium (Cozaar) 50 mg PO DAILY [facility] Last Admin: 12/02/17 10:53 Dose: 50 mg Rosuvastatin Calcium (Crestor) 10 mg PO HS [facility] Last Admin: 12/02/17 22:17 Dose: 10 mg Sitagliptin Phosphate (Januvia) 25 mg PO DAILY [facility] Last Admin: 12/02/17 11:55 Dose: 25 mg - Labs Labs: 12/02/17 07:14 12/02/17 07:14 PT 12.7 SECONDS (9.7-12.2) H 12/01/17 14:25 INR 1.1 12/01/17 14:25 APTT 30 SECONDS (21-34) D 12/01/17 19:48
--- NOTE | 2017-12-03 10:24 | VASCLAB ---
PROCEDURE: Lower Extremity Venous Duplex Exam. HISTORY: DVT PRIORS: None. TECHNIQUE: Bilateral common femoral, femoral, popliteal and posterior tibial, peroneal and great saphenous veins were evaluated. Flow was assessed with color Doppler, compressibility, assessment of phasic flow and augmentation response. Report prepared by DODIE Raphael, RVT FINDINGS: RIGHT: 1. Common Femoral Vein: 1.1. Compressibility - Fully compressible: Thrombus - None : Flow - Phasic: Augmentation -Normal: Reflux - None. 2. Femoral Vein: 2.1. Compressibility - Fully compressible: Thrombus - None : Flow - Phasic: Augmentation -Normal: Reflux - None. 3. Popliteal Vein: 3.1. Compressibility - Fully compressible: Thrombus - None : Flow - Phasic: Augmentation -Normal: Reflux - None. 4. Posterior Tibial Vein: 4.1. Compressibility - Fully compressible: Thrombus - None: Flow - Phasic: Augmentation -Normal: Reflux - None. 5. Peroneal Vein: 5.1. Compressibility - Fully compressible: Thrombus - None: Flow - Phasic: Augmentation -Normal: Reflux - None. 6. Great Saphenous Vein: 6.1. Compressibility - Fully compressible: Thrombus - None: Flow - Phasic: Augmentation - Normal: Reflux - Severe. LEFT: 1. Common Femoral Vein: 1.1. Compressibility - Fully compressible: Thrombus - None: Flow - Phasic: Augmentation -Normal: Reflux - None. 2. Femoral Vein: 2.1. Compressibility - Fully compressible: Thrombus - None: Flow - Phasic: Augmentation -Normal: Reflux - None. 3. Popliteal Vein: 3.1. Compressibility - Fully compressible: Thrombus - None : Flow - Phasic: Augmentation -Normal: Reflux - None. 4. Posterior Tibial Vein: 4.1. Compressibility - Fully compressible: Thrombus - None: Flow - Phasic: Augmentation -Normal: Reflux - None. 5. Peroneal Vein: 5.1. Compressibility - Fully compressible: Thrombus - None: Flow - Phasic: Augmentation -Normal: Reflux - None. 6. Great Saphenous Vein: 6.1. Compressibility - Fully compressible: Thrombus - None: Flow - Phasic: Augmentation - Normal: Reflux - None. OTHER FINDINGS: Right: None significant. Left: None significant. IMPRESSION: Right: No evidence of deep or superficial vein thrombosis of the right lower extremity. Valvular incompetence of the right greater saphenous vein. Left: No evidence of deep or superficial vein thrombosis of the left lower extremity. Normal valve function noted of the left side.
--- NOTE | 2017-12-03 10:24 | VASCLAB ---
PROCEDURE: HISTORY: Carotid artery stenosis COMPARISON: None available. TECHNIQUE: Grayscale and duplex Doppler evaluation of the cervical carotid and vertebral arteries were performed. The common carotid, carotid bifurcations and cervical Internal Carotid Artery (ICA) and proximal External Carotid Artery (ECA) were evaluated. The vertebral arteries were evaluated for gross patency and flow direction. Report prepared by Hector Mustafa, BS, RVT FINDINGS: RIGHT CAROTID ARTERIES: 1. Common Carotid Artery: No significant focal plaque formation of the right common carotid artery. Maximum Peak Systolic velocity: 70 cm/sec: End-diastolic velocity 10 cm/sec. 2. Carotid Bifurcation: Calcific plaque formation. Maximum Peak Systolic velocity: 65 cm/sec: End-diastolic velocity 10 cm/sec. 3. Internal Carotid Artery: Minimal plaque formation of the right proximal ICA which does not result in hemodynamically significant stenosis. Plaque description: Calcific 3.1. Proximal Segment: Peak systolic velocity 66 cm/sec: End-diastolic velocity 16 cm/sec - % stenosis 0-15% 3.2. Middle Segment: Peak systolic velocity 71 cm/sec: End-diastolic velocity 16 cm/sec - % stenosis 0-15% 3.3. Distal Segment: Peak systolic velocity 45 cm/sec: End-diastolic velocity 20 cm/sec - % stenosis 0-15% 4. External Carotid Artery: No significant focal plaque formation. Peak systolic velocity 105 cm/sec 5. ICA/CCA Ratio: 1.0 LEFT CAROTID ARTERIES: 1. Common Carotid Artery: No significant focal plaque formation of the left common carotid artery. Maximum Peak Systolic velocity: 98 cm/sec: End-diastolic velocity 0 cm/sec. 2. Carotid Bifurcation: Calcific plaque formation. Maximum Peak Systolic velocity: 94 cm/sec: End-diastolic velocity 0 cm/sec. 3. Internal Carotid Artery: Minimal plaque formation of the left proximal ICA which does not result in hemodynamically significant stenosis. Plaque description: Calcific 3.1. Proximal Segment: Peak systolic velocity 72 cm/sec: End-diastolic velocity 19 cm/sec - % stenosis 0-15% 3.2. Middle Segment: Peak systolic velocity 93 cm/sec: End-diastolic velocity 26 cm/sec - % stenosis 0-15% 3.3. Distal Segment: Peak systolic velocity 79 cm/sec: End-diastolic velocity 19 cm/sec - % stenosis 0-15% 4. External Carotid Artery: No significant focal plaque formation. Peak systolic velocity 109 cm/sec 5. ICA/CCA Ratio: 1.0 VERTEBRAL ARTERIES: 1. Right Vertebral Artery: The right vertebral artery flow direction is antegrade. 2. Left Vertebral Artery: The left vertebral artery flow direction is antegrade. OTHER FINDINGS: 1. Right Brachial Blood pressure: 130 mmHg. 2. Left Brachial Blood pressure: 126 mmHg. IMPRESSION: RIGHT: Duplex scan does not suggest hemodynamically significant stenosis of the right extracranial carotid arteries. LEFT: Duplex scan does not suggest hemodynamically significant stenosis of the left extracranial carotid arteries.
--- NOTE | 2017-12-03 10:25 | VASCLAB ---
STUDY DESCRIPTION: HISTORY: PAD PRIORS: None. TECHNIQUE: Pulse volume recording waveforms and segmental pressures of bilateral lower extremities at multiple levels were obtained. Ankle Brachial Indices (ABIs) were calculated. Report prepared by DODIE Raphael, RVT RIGHT LOWER EXTREMITY: * Brachial artery: Pressure - 130 mmHg. * High thigh: Pressure - mmHg: Ratio - : PVR waveform - * Low thigh: Pressure - mmHg: Ratio - PVR waveform: Pulsatile * Calf: Pressure - 178 mmHg: Ratio - 1.37 PVR waveform: Pulsatile * Posterior tibial Artery: Pressure - 169 mmHg: Ratio - 1.30 PVR waveform: Pulsatile * Dorsalis pedis Artery: Pressure - 141 mmHg: Ratio - 1.08 PVR waveform: Pulsatile * Great toe: Pressure - mmHg: Ratio - PVR waveform: Ankle brachial index (OG): 1.30 LEFT LOWER EXTREMITY: * Brachial artery: Pressure - 126 mmHg. * High thigh: Pressure - mmHg: Ratio - : PVR waveform - * Low thigh: Pressure - mmHg: Ratio - PVR waveform: Pulsatile * Calf: Pressure - 220 mmHg: Ratio - NC PVR waveform: Pulsatile * Posterior tibial Artery: Pressure - 122 mmHg: Ratio - 0.94 PVR waveform: Pulsatile * Dorsalis pedis Artery: Pressure - 123 mmHg: Ratio - 0.95 PVR waveform: Pulsatile * Great toe: Pressure - mmHg: Ratio - PVR waveform: Ankle brachial index (OG): 0.95 OTHER FINDINGS: Right: Left: IMPRESSION: Right: The ankle pressure index of the right lower extremity is non-diagnostic due to possible arterial wall calcifications. Left: This exam reveals mildly decreased perfusion of the left lower extremity, noted at the tibial and distal small artery levels.
--- NOTE | 2017-12-03 11:18 | PN ---
DATE: 12/03/2017 TIME OF EVALUATION: 6:50 a.m. 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 PHYSICAL EXAMINATION: VITAL SIGNS: Blood pressure 146/87, mean artery pressure 106, respiratory rate 18, temperature 97.9 with a pulse rate of 96 and irregular. GENERAL: The patient is more awake, alert, and oriented to person, place, and time. She is already is sitting up in the bed ready to take her breakfast. The patient's condition is being discussed with her daughter over the phone. No new episodes happened. Her examination still with left hemiparesis secondary to her previous stroke. The patient was scheduled to have an MRI of the brain, which was not done as per the recommendation. The patient is out of bed. At present, the patient's neurological status is unchanged. Her recent blood workup showed significant drop in B12 of 207 and she has been placed on supplements. The TSH is 6.45 that has to be addressed. The patient also has hemoglobin A1c of 8.1 that has to be addressed as well. The patient's condition is being discussed with her as well as her daughter about her diabetic control, weight reduction, and blood pressure control. If medically stable following MRI, the patient can be discharged and she should have followup visit with me as an outpatient. Nba Kilgore MD <
--- NOTE | 2017-12-03 11:42 | CP.PCM.PN ---
<Dino Jones - Last Filed: 12/03/17 17:24> Subjective - Date & Time of Evaluation Date of Evaluation: 12/03/17 Time of Evaluation: 07:35 - Subjective Subjective: PGY2 Cardiology Progress Note for Dr. Amezcua Patient seen and examined at bedside. No acute distress. She is AAOx2 (to person / place). Denies chest pain, palpitations, or SOB. Family member at bedside, and he states that she is normally oriented to time; todays response of 196 for the year was abnormal. Objective - Vital Signs/Intake and Output Vital Signs (last 24 hours): Temp Pulse Resp BP Pulse Ox 98.0 F 87 20 135/80 97 12/03/17 07:10 12/03/17 07:10 12/03/17 07:10 12/03/17 07:10 12/03/17 07:10 Intake and Output: 12/03/17 12/03/17 06:59 18:59 Intake Total 590 Balance 590 - Medications Medications: Current Medications Aspirin (Aspirin Chewable) 81 mg PO DAILY [facility] Last Admin: 12/02/17 10:53 Dose: 81 mg Clopidogrel Bisulfate (Plavix) 75 mg PO DAILY [facility] Last Admin: 12/02/17 10:53 Dose: 75 mg Cyanocobalamin (Vitamin B12 1000 Mcg/Ml Inj) 1,000 mcg IM DAILY [facility] Last Admin: 12/02/17 11:56 Dose: 1,000 mcg Glimepiride (Amaryl) 4 mg PO DAILY [facility] Last Admin: 12/02/17 10:53 Dose: 4 mg Heparin Sodium (Porcine) (Heparin) 5,000 units SC Q8 [facility] Last Admin: 12/03/17 06:09 Dose: 5,000 units Insulin Human Regular (Novolin R) 1 unit SC ACHS [facility] PRN Reason: Protocol Last Admin: 12/03/17 08:03 Dose: Not Given Levothyroxine Sodium (Synthroid) 25 mcg PO DAILY@0630 [facility] Last Admin: 12/03/17 06:04 Dose: 25 mcg Losartan Potassium (Cozaar) 50 mg PO DAILY [facility] Last Admin: 12/02/17 10:53 Dose: 50 mg Rosuvastatin Calcium (Crestor) 10 mg PO HS [facility] Last Admin: 12/02/17 22:17 Dose: 10 mg Sitagliptin Phosphate (Januvia) 25 mg PO DAILY [facility] Last Admin: 12/02/17 11:55 Dose: 25 mg - Labs Labs: 12/02/17 07:14 12/02/17 07:14 PT 12.7 SECONDS (9.7-12.2) H 12/01/17 14:25 INR 1.1 12/01/17 14:25 APTT 30 SECONDS (21-34) D 12/01/17 19:48 - Head Exam Head Exam: ATRAUMATIC, NORMAL INSPECTION - Eye Exam Eye Exam: EOMI, Normal appearance - ENT Exam ENT Exam: Mucous Membranes Moist - Respiratory Exam Respiratory Exam: Clear to Ausculation Bilateral, NORMAL BREATHING PATTERN. absent: Wheezes, Respiratory Distress - Cardiovascular Exam Cardiovascular Exam: REGULAR RHYTHM, JVD (mild), +S1, +S2, Murmur (holosytolic) . absent: Irregular Rhythm - GI/Abdominal Exam GI & Abdominal Exam: Soft, Normal Bowel Sounds. absent: Tenderness - Extremities Exam Extremities Exam: Pedal Edema (dec sensation of L lateral leg). absent: Tenderness - Neurological Exam Neurological Exam: Alert, Awake. absent: Oriented x3 (oriented to self / place , not time) - Psychiatric Exam Psychiatric exam: Flat Affect, Normal Mood - Skin Skin Exam: Dry, Intact, Normal Color Assessment and Plan - Assessment and Plan (Free Text) Assessment: CHF (congestive heart failure) -Candidate for LinQ Monitor to assess rhythm long-term, concern for paroxysmal Afib Continue ASA 81mg PO qD, Plavix 75mg PO qD, Cozaar 50mg PO qD, Crestor 10mg PO HS Ddimer (+)500 LDL 135H TSH elevateda at 6.45 Echo 12/02- LVH, mild sclerotic aortic valve, grade 1 abnormal relaxation, aortic regurg, see full report. Carotid studies - negative, see full report LE duplex - negative, see full report LE US - decreased perfusion to LLE non diagnostic RLE 2/2 calcifications, see full report Case Discussed with Dr. Seven Jones, PGY2 <Leonid Amezcua - Last Filed: 12/03/17 19:33> Objective - Vital Signs/Intake and Output Vital Signs (last 24 hours): Temp Pulse Resp BP Pulse Ox 98.0 F 91 H 20 135/80 97 12/03/17 07:10 12/03/17 08:00 12/03/17 07:10 12/03/17 07:10 12/03/17 07:10 - Labs Labs: 12/02/17 07:14 12/02/17 07:14 PT 12.7 SECONDS (9.7-12.2) H 12/01/17 14:25 INR 1.1 12/01/17 14:25 APTT 30 SECONDS (21-34) D 12/01/17 19:48 Assessment and Plan - Assessment and Plan (Free Text) Plan: Patient seen and evaluated personally by me Plan of care d/w the resident and as documented
--- NOTE | 2017-12-03 12:04 | MRI ---
PROCEDURE: MRI BRAIN WITHOUT CONTRAST HISTORY: Stroke COMPARISON: Comparison made with the CT scan of the brain dated 12/01/2017 TECHNIQUE: Multiplanar, multisequence MR images of the brain were obtained without intravenous contrast enhancement. Study is limited by motion artifact. FINDINGS: HEMORRHAGE: No no acute parenchymal, subarachnoid or extra-axial hemorrhage. No evidence of hemosiderin deposition identified on gradient echo weighted sequence DWI: No evidence of an acute or early subacute infarction seen on diffusion imaging. BRAIN PARENCHYMA: Chronic periventricular white matter ischemic changes seen extending peripherally into the deep and subcortical white matter both cerebral hemispheres. In addition, there are multiple more discrete chronic appearing lacunar type infarcts scattered about the deep and subcortical white matter, both basal nuclei and brainstem. Mild moderate generalized volume loss. VENTRICLES: No obstructive hydrocephalus. CRANIUM: No acute calvarial abnormalities. ORBITS: Orbits and contents grossly unremarkable. PARANASAL SINUSES/MASTOIDS: Visualized paranasal sinuses well-developed. Minimal mucosal thickening seen within few ethmoid air cells and both maxillary antra. . There presumed inspissated secretions opacifying the left chamber sphenoid sinus VASCULAR SYSTEM: Visualized major vascular flow voids at skull base patent. OTHER FINDINGS: None. IMPRESSION: No acute intracranial hemorrhage. Chronic white matter, basal nuclei and brainstem ischemic changes. Mild moderate generalized volume loss.
--- NOTE | 2017-12-03 14:51 | CP.PCM.PN ---
Subjective - Date & Time of Evaluation Date of Evaluation: 12/03/17 Time of Evaluation: 14:48 - Subjective Subjective: PT CLEARED FOR D/C HOME TODAY PER DR. GAMBLE, DR. ISIDRO, AND DR. CARABALLO. PT ADMITS THAT DR. ISIDRO IS HER PMD AND SHE HAS BEEN INSTRUCTED TO F/U WITH DR. ISIDRO IN THE OFFICE WITHIN 5-7 DAYS. RX GIVEN TO PT (AND SENT TO PHARMACY) ARE NOTED BELOW. PT VERBALIZES UNDERSTANDING OF ALL D/C PLAN, F/U APPTS, AND MEDS. NOW FURTHER ORDERS. -FOLLOW UP WITH DR. ISIDRO IN THE OFFICE IN 5-7 DAYS OF DISCHARGE---CALL THE OFFICE ON WEDNESDAY TO ARRANGE YOUR APPOINTMENT. -FOLLOW UP WITH DR. CARABALLO (NEUROLOGIST) IN THE OFFICE WITHIN 7-10 DAYS OF DISCHARGE---CALL THE OFFICE ON WEDNESDAY TO ARRANGE YOUR APPOINTMENT. -CONTINUE YOUR HOME MEDICATIONS USUAL. YOU WILL CONTINUE TO TAKE BABY ASPIRIN ONCE A DAY. -NEW PRESCRIPTIONS INCLUDE: 1) PLAVIX 75 MG ONCE A DAY (FOR YOUR HEART HEALTH) 2) CRESTOR 10 MG AT BEDTIME (FOR CHOLESTEROL AND HEART HEALTH) 3) LEVOTHYROXINE 25 MCG BY MOUTH ONCE A DAY BEFORE BREAKFAST (FOR YOUR THYROID ) 4) VITAMIN B12 SUPPLEMENT ONCE A DAY -IF YOU HAVE ANY FURTHER QUESTIONS OR CONCERNS, CONTACT DR. ISIDRO'S OFFICE. Objective - Vital Signs/Intake and Output Vital Signs (last 24 hours): Temp Pulse Resp BP Pulse Ox 98.0 F 87 20 135/80 97 12/03/17 07:10 12/03/17 07:10 12/03/17 07:10 12/03/17 07:10 12/03/17 07:10 Intake and Output: 12/03/17 12/03/17 06:59 18:59 Intake Total 590 Balance 590 - Medications Medications: Current Medications Aspirin (Aspirin Chewable) 81 mg PO DAILY [facility] Last Admin: 12/03/17 11:46 Dose: 81 mg Clopidogrel Bisulfate (Plavix) 75 mg PO DAILY [facility] Last Admin: 12/03/17 11:47 Dose: 75 mg Cyanocobalamin (Vitamin B12 1000 Mcg/Ml Inj) 1,000 mcg IM DAILY [facility] Last Admin: 12/03/17 11:48 Dose: 1,000 mcg Glimepiride (Amaryl) 4 mg PO DAILY [facility] Last Admin: 12/03/17 11:48 Dose: 4 mg Heparin Sodium (Porcine) (Heparin) 5,000 units SC Q8 [facility] Last Admin: 12/03/17 14:23 Dose: 5,000 units Insulin Human Regular (Novolin R) 1 unit SC ACHS [facility] PRN Reason: Protocol Last Admin: 12/03/17 12:26 Dose: Not Given Levothyroxine Sodium (Synthroid) 25 mcg PO DAILY@0630 [facility] Last Admin: 12/03/17 06:04 Dose: 25 mcg Losartan Potassium (Cozaar) 50 mg PO DAILY [facility] Last Admin: 12/03/17 11:47 Dose: 50 mg Rosuvastatin Calcium (Crestor) 10 mg PO HS [facility] Last Admin: 12/02/17 22:17 Dose: 10 mg Sitagliptin Phosphate (Januvia) 25 mg PO DAILY [facility] Last Admin: 12/03/17 11:47 Dose: 25 mg - Labs Labs: 12/02/17 07:14 12/02/17 07:14 PT 12.7 SECONDS (9.7-12.2) H 12/01/17 14:25 INR 1.1 12/01/17 14:25 APTT 30 SECONDS (21-34) D 12/01/17 19:48
[2017-12-03 15:05] VITALS: PULSE 91
--- NOTE | 2017-12-03 16:07 | PCM.HF ---
Heart Failure Core Measure - Heart Failure Ejection Fraction: 40 % or Greater FABIÁN Inhibitor Prescribed: No Contraindication/Reason for not providing: ON ARB Beta-Alvin Prescribed: None Contraindication/Reason for not providing: EF > 40 Angiotensin II Receptor Alvin Prescribed: Yes AnticoagulationTherapy for Atrial Fibrillation/Atrialflutter: No Contraindication/Reason for not providing: NO AFIB Aldosterone Antagonist Prescribed: No Contraindication/Reason for not providing: EF > 40 Hydralazine Nitrate Prescribed: No Contraindication/Reason for not providing: EF > 40 Implantable Cardioverter Defibrillator Therapy: No Contraindication/Reason for not providing: EF > 40; NO H/O Cardiac Resynchronization Therapy Prescribed: No Contraindication/Reason for not providing: EF > 40; NO H/O - Follow up Will be discharged to: Home Follow Up Date (must be within 7 days from discharge): 12/08/17 Follow Up Time: 09:00
--- NOTE | 2017-12-04 07:46 | DS ---
DISCHARGE DIAGNOSES: Neck pain, left leg pain, elevated D-dimer, PE and DVT ruled out, hypertension, uncontrolled diabetes mellitus, B12 deficiency, elevated TSH level, and hyperlipidemia. HISTORY OF PRESENT ILLNESS: Ms. Quigley is an 82-year-old female with past medical history of hypertension, diabetes mellitus, CAD, status post stent placement, admitted for left leg numbness and pain and neck pain, progressively worse over the past 2 weeks, and the patient is being admitted for rule out TIA and CVA. This morning, the patient is feeling much better. Denies any headache or dizziness. Denies any chest pain, shortness of breath, or wheezing. Denies any nausea, vomiting, abdominal pain, diarrhea, or constipation. Denies any urinary complaints. Denies any leg pain or leg cramps. Denies any other neurologic symptoms. All of the systems reviewed and were found to be negative. PHYSICAL EXAMINATION: GENERAL: Elderly female, lying in bed, in no acute distress. VITAL SIGNS: Blood pressure 135/80, pulse 87, respirations 20, temperature 98 degrees Fahrenheit, and O2 saturation is 97% on room air. HEENT: Pupils equal, round, and reactive to light and accommodation. Extraocular muscles intact. No icterus, no pallor. No oral thrush. No pharyngeal congestion. NECK: Supple. No JVD. CHEST: Moving equally bilaterally on respiration. LUNGS: Bilateral vesicular breath sounds. No wheezing. No rhonchi. CVS: S1, S2 present, regular. ABDOMEN: Soft and nontender. Bowel sounds present. No guarding. No rigidity. No rebound tenderness noted. 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 No focal deficits noted. EXTREMITIES: No edema. Palpable peripheral pulses. LABORATORY DATA: Labs done from 12/02, WBC 6.0, hemoglobin 12.3, hematocrit 36.5, and platelets 141. Sodium 142, potassium 3.8, chloride 100, bicarbonate 29, BUN 13, creatinine 0.8, glucose 142, hemoglobin A1c is 8.1, and calcium 9.1. Total bilirubin is 0.6. AST 22, ALT 26, cardiac enzyme is x3 negative. LDL is 135, B12 of 207, and TSH 6.45. Carotid Doppler negative. Lower extremity Doppler negative for DVT, V/Q scan negative for PE. Arterial Doppler negative. MRI is negative for any acute infract. EEG results pending. HOSPITAL COURSE: The patient was admitted to the hospital for rule out TIA versus CVA. The patient was found to be having elevated D-dimer. The patient had the workup done. All the workup was negative. The patient was evaluated by Cardiology and Neurology. EEG results pending. As the patient is anxious to go home, there are no new neurologic deficits noted. The patient is cleared by Cardiology and Neurology. The patient was discharged. Advised the patient to follow up with PMD, Cardiology, and Neurology as outpatient. The patient was started on Plavix by Neurology in the hospital and received B12 injections for 2 days for low B12 level and started on Synthroid for elevated TSH level. Advised the patient to continue with her home medications and advised to return to ED if any worsening symptoms. CONDITION UPON DISCHARGE: The patient is alert, awake, and oriented x3, and hemodynamically stable at the time of discharge. DISCHARGE INSTRUCTIONS: Follow up with PMD. Follow up with Cardiology. Followup with Neurology. DIET: Heart healthy, low-sodium, low-cholesterol, 1800-calorie ADA diet. ACTIVITY: As tolerated. DISCHARGE MEDICATIONS: Please refer to discharge medication reconciliation. Luli Howard MD
--- NOTE | 2017-12-06 13:36 | EEG ---
DATE: 12/03/2017 This is a 16-channel electroencephalogram of awake and drowsy adult. During the study, photic stimulation was performed. Hyperventilation was not performed. The resting electroencephalogram shows low amplitude, fast beta activities superimposed with 5 to 6 Hz theta activities noted at parietal and occipital leads. Intermittent movement artifact contaminated the background rhythm. The photic stimulation did not evoke driving response noted at 2 to 20 Hz. At times, the activities were slowed down from 2 to 3 Hz of delta activities which is consistent with drowsiness. IMPRESSION: This is a mildly abnormal electroencephalogram because of persistent slowing throughout the recording, suggestive of bilateral cerebral dysfunction. This is probably secondary to metabolic, vascular, or degenerative process. Please correlate the findings with the neurological and radiological studies. Nba Kilgore MD
== END 2017-12-03 16:08 | disposition home or self-care (01) ==
LOC: C.ER 14:00 → C.9E 16:05 → C.6T 17:22
PROVIDERS: ADMIT Internal Medicine; ATTEND Internal Medicine
DX: I11.0 Hypertensive heart disease with heart failure (principal); E78.5 Hyperlipidemia, unspecified; E66.9 Obesity, unspecified; E11.40 Type 2 diabetes mellitus with diabetic neuropathy, unspecified; G81.94 Hemiplegia, unspecified affecting left nondominant side; I25.10 Atherosclerotic heart disease of native coronary artery without angina pectoris; I63.9 Cerebral infarction, unspecified; K21.9 Gastro-esophageal reflux disease without esophagitis; Z79.84 Long term (current) use of oral hypoglycemic drugs; Z95.5 Presence of coronary angioplasty implant and graft; I50.9 Heart failure, unspecified; Z68.36 Body mass index [BMI] 36.0-36.9, adult
CPT/HCPCS: 36415; 70450; 70551; 71045; 78582; 80053; 80061; 81001; 82607; 82948; 83036; 83880; 84439; 84443; 84484; 85025; 85378; 85610; 85651; 85730; 86140; 86334; 86376; 86800; 93005; 93306; 93880; 93923; 93970; 95812; 96374; 97116; 97162; 97166; 97530; 99285; A9524; A9558; G0378; G8978; G8979; G8987; G8988; J1644; J1940; J2060; J3420